=== PATIENT | male | born 1950 | race Caucasian/White ===

== ENCOUNTER 2021-08-16 14:24 | Observation (INO) | payer MEDICARE, OTHER ==
[~2021-08-16] VITALS: Ht 182.9 cm; Wt 90.7 kg
[2021-08-16 15:12] LABS: HEMOGLOBIN 14.8 gm/dl (14.0-17.5); RED BLOOD COUNT 5.26 M/UL (4.20-5.50); WHITE BLOOD COUNT 8.3 K/UL (4.5-11.0)
[2021-08-16 15:57] LABS: BUN/CREATININE RATIO 10 (0-10)
[2021-08-16] MEDS ORDERED: MELOXICAM7.5 MG PO (21:46)
[2021-08-16] MEDS ORDERED: AMOX TR-K CLV1 EAC4 PO ×2 (21:47→21:48)
[2021-08-16] MEDS ORDERED: EVOLOCUMAB 140 MG/ML (21:48)
[2021-08-16] MEDS ORDERED: COREG 12.5MG12.5 MG PO (21:50)
[2021-08-17 05:57] LABS: RED BLOOD COUNT 5.08 M/UL (4.20-5.50)
[2021-08-17 06:07] LABS: WHITE BLOOD COUNT 5.9 K/UL (4.5-11.0)
[2021-08-17 06:08] LABS: BUN/CREATININE RATIO 13 (0-10)
[2021-08-17] MEDS ORDERED: ZOFRAN ODT 4 MG4 MG PO (09:36)
[2021-08-18] MEDS ORDERED: ASPIRIN EC81 MG PO (09:36)
[2021-08-18] MEDS ORDERED: CLOPIDOGREL75 MG PO (10:27)
== END 2021-08-18 11:34 | disposition home or self-care (01) ==
LOC: ER1 14:24 → M/S 18:13 → CDU 18:13 → M/S 20:10
PROVIDERS: Emergency Medicine; ADMIT Internal Medicine
DX: R26.0 Ataxic gait (principal); I25.2 Old myocardial infarction; I25.10 Atherosclerotic heart disease of native coronary artery without angina pectoris; I10 Essential (primary) hypertension; E78.5 Hyperlipidemia, unspecified; F17.200 Nicotine dependence, unspecified, uncomplicated; Z20.822 Contact with and (suspected) exposure to COVID-19; Z86.16 Personal history of COVID-19; Z79.899 Other long term (current) drug therapy; Z86.73 Personal history of transient ischemic attack (TIA), and cerebral infarction without residual deficits; Z95.5 Presence of coronary angioplasty implant and graft
CPT/HCPCS: ECHO; 36415; 70496; 70498; 70551; 80048; 80053; 80061; 81001; 82550; 82553; 82962; 83735; 83874; 84484; 85025; 85610; 85730; 93005; 93306; 97161; 97166; 99285; G0378; J1650; Q9967; U0002

== ENCOUNTER 2021-08-19 15:53 | Emergency (ER) | payer MEDICARE, OTHER ==
[~2021-08-19 15:53] MED LIST: AMOX TR-K CLV1 EAC4 PO; ASPIRIN EC81 MG PO; CLOPIDOGREL75 MG PO; COREG 12.5MG12.5 MG PO; EVOLOCUMAB 140 MG/ML; MELOXICAM7.5 MG PO; ZOFRAN ODT 4 MG4 MG PO
[2021-08-19 16:42] LABS: HEMOGLOBIN 15.1 gm/dl (14.0-17.5); RED BLOOD COUNT 5.38 M/UL (4.20-5.50)
[2021-08-19 16:43] LABS: WHITE BLOOD COUNT 8.1 K/UL (4.5-11.0)
[2021-08-19 17:03] LABS: BUN/CREATININE RATIO 14 (0-10)
== END 2021-08-19 22:15 | disposition other institution (70) ==
LOC: ER1 15:53
PROVIDERS: Nurse Practitioner
DX: R20.0 Anesthesia of skin (principal); R51.9 Headache, unspecified; I25.10 Atherosclerotic heart disease of native coronary artery without angina pectoris; I10 Essential (primary) hypertension; Z20.822 Contact with and (suspected) exposure to COVID-19
CPT/HCPCS: 70450; 80053; 85025; 93005; 96374; 99285; J2060; J7030; U0002